=== PATIENT | male | born 1980 | race Caucasian/White ===

== ENCOUNTER 2021-09-18 | Emergency (ER) | payer MEDICAID ==
[~2021-09-18] VITALS: Ht 177.8 cm; Wt 72.6 kg
--- NOTE | 2021-09-18 00:10 | NUR ---
SOFIA FROM THE STREETS FOUND UNCONSIOUS GIVEN 4MG NARCAN NOW ALERT BUT NOT ANSWERING ANY QUESTIONS OR RESPONDING. PT AWAKE. TOLERATING R/A WELL WITH NO SOB. CONNECTED PT TO POX AND MONITOR.
[2021-09-18] MEDS ORDERED: ONDANSETRON HCL/PF 4 MG/2 ML VIAL ONE (00:16)
--- NOTE | 2021-09-18 00:20 | NUR ---
PT AWAKE. A/OX3. REPORTS HE TOOK [employer].
[2021-09-18 00:25] VITALS: BP 156/84
[2021-09-18] MEDS ORDERED: IV NS 0.9% 1,000 ML BAG IV ONE (00:30)
[2021-09-18] MEDS ORDERED: ONDANSETRON HCL/PF 4 MG/2 ML VIAL IVP ONE (00:30)
--- NOTE | 2021-09-18 00:31 | NUR ---
POC BS ACCUCHECK 212. DR LUCAS AWARE
--- NOTE | 2021-09-18 00:33 | NUR ---
[employer] LIFE[employer] AT PT'S BEDSIDE
[2021-09-18 00:34] LABS: BASOPHILS % (AUTO) 0.5 % (0.0-2.0); EOSINOPHILS % (AUTO) 0.8 % (0.0-6.0); HEMATOCRIT 38 % (39-51); HEMOGLOBIN 12.3 g/dL (13.5-17.5); LYMPHOCYTES # (AUTO) 2.5 K/uL (0.8-4.8); LYMPHOCYTES % (AUTO) 46.6 % (20.0-44.0); MEAN CORPUSCULAR HGB CONC 33 g/dl (31.0-36.0); MEAN CORPUSCULAR VOLUME 82 fL (80-96); MONOCYTES # (AUTO) 0.4 K/uL (0.1-1.30); MONOCYTES % (AUTO) 8.4 % (2.0-12.0); NEUTROPHILS # (AUTO) 2.3 K/uL (1.8-8.9); NEUTROPHILS % (AUTO) 43.7 % (43.0-81.0); PLATELET COUNT (AUTO) 325 K/uL (150-450); RED BLOOD CELL COUNT(AUTO) 4.62 MIL/uL (4.5-6.0); WHITE BLOOD COUNT (AUTO) 5.4 K/uL (4.3-11.0)
--- NOTE | 2021-09-18 00:39 | NUR ---
URINE COLLECTED AND SENT TO LAB
[2021-09-18 00:42] LABS: CALCIUM, SERUM 8.3 mg/dL (8.5-10.1); CARBON DIOXIDE 25 mmol/L (21-32); CHLORIDE 104 mmol/L (98-107); GLUCOSE 197 mg/dL (74-106); POTASSIUM 3.4 mmol/L (3.5-5.1); SODIUM SERUM 137 mmol/L (136-145); UREA NITROGEN, BLOOD 24 mg/dL (7-18)
[2021-09-18 00:48] LABS: ALANINE AMINOTRANSFERASE 31 U/L (12-78); ALCOHOL, BLOOD < 3 mg/dL (0-0); ALKALINE PHOSPHATASE 73 U/L (46-116); ASPARTATE AMINOTRANSFERASE 37 U/L (15-37); BILIRUBIN,DIRECT 0.1 mg/dL (0.0-0.2); BILIRUBIN,TOTAL 0.2 mg/dL (0.2-1.0); TOTAL PROTEIN, SERUM 6.4 g/dL (6.4-8.2)
[2021-09-18 00:50] LABS: ACETAMINOPHEN 0 ug/ml (10-30)
[2021-09-18 01:07] LABS: COLOR,URINE YELLOW (YELLOW)
[2021-09-18 01:08] LABS: BILIRUBIN,URINE NEGATIVE (NEGATIVE); LEUKOCYTE ESTERASE ,URINE NEGATIVE (NEGATIVE); NITRITE, URINE NEGATIVE (NEGATIVE); PROTEIN,URINE 100 mg/dl (NEGATIVE); UGLUCOSE 100 MG/DL mg/dL (NEGATIVE)
--- NOTE | 2021-09-18 05:23 | NUR ---
Patient discharged to home in stable condition. Written and verbal after care instructions given. Patient verbalizes understanding of instruction.
[2021-09-18 06:41] LABS: RBC,URINE 0-2 /HPF (0-2); WBC,URINE 0-2 /HPF (0-3)
[2021-09-18 06:42] LABS: SQUAMOUS EPITHELIAL CELL,UR 0-2 /HPF (None Seen)
[2021-09-18 06:43] LABS: URINE AMORPHOUS URATE Moderate /HPF (None Seen)
[2021-09-18 06:45] LABS: BACTERIA,URINE Few /HPF (None Seen)
== END 2021-09-18 05:24 | disposition home or self-care (01) ==
LOC: ER 00:07 → EDBD 00:07 → ER 05:24
DX: T40.411A Poisoning by fentanyl or fentanyl analogs, accidental (unintentional), initial encounter (principal); F19.10 Other psychoactive substance abuse, uncomplicated; Z59.00 Homelessness unspecified; Y92.89 Other specified places as the place of occurrence of the external cause
CPT/HCPCS: 36415; 80048; 80076; 80143; 80307; 80320; 81001; 82962; 85025; 93005; 96361; 96374; 99284; J2405; J7030; G0480